=== PATIENT | male | born 1990 | race African-American/Black ===

== ENCOUNTER 2016-12-30 01:04 | Emergency (ER) | payer SELFPAY ==
[~2016-12-30] VITALS: Ht 175.3 cm; Wt 110.0 kg
[~2016-12-30 01:04] MED LIST: Z.0.NO CURRENT MEDS
[2016-12-30 01:05] VITALS: BP 137/87; PULSE 68; RESP 18; TEMP 97.7; O2SAT 99
[2016-12-30] MEDS ORDERED: ACETAMINOPHEN/CODEINE 300 MG/30 MG TAB PO ONE (02:45)
[2016-12-30] MEDS ORDERED: DICL75TA PO (02:45)
[2016-12-30] MEDS ORDERED: KETOROLAC TROMETHAMINE 60 MG/2 ML (IM) VIAL IM ONE (02:45)
[2016-12-30] MEDS ORDERED: MAGICADU2 SWISH-SPIT (02:45)
--- NOTE | 2016-12-30 02:48 | PD ---
HPI Chief Complaint: Oral / Dental Pain or Problem Time Seen by Provider: 02:38 Travel History International Travel<30 days: No Contact w/Intl Traveler<30days: No Traveled to known affect area: No History of Present Illness HPI 26-year-old male presents for evaluation of dental pain. Symptoms have been intermittent for "a long time" with occasional flareups. He has had increased pain over the past 2 days. The pain is a throbbing pain localized to the right mandibular third molar and radiating to the right ear, face. Pain worse when chewing. Denies dental trauma. No other complaints. PFSH Past Medical History Medical History: Denies Significant Hx Diminished Hearing: No Past Surgical History Surgical History: No Previous Surgery Social History Alcohol Use: No Tobacco Use: No Substance Use: No Allergies-Medications (Allergen,Severity, Reaction): Coded Allergies: No Known Allergies (Verified , 12/30/16) Reported Meds & Prescriptions Reported Meds & Active Scripts Active Magic Mouthwash Adult Liq (Multi-Ingredient Mouthwash/Gargle) 120 Ml Susp 10 Ml SWISH-SPIT ACHS Each 5mL contains: Nystatin 200,000units, Diphenhydramine 4.25mg, Viscous Lidocaine 10mg, Marie syrup 0.[address] (Diclofenac Sodium) 75 Mg Tabdr 75 Mg PO BID 10 Days Review of Systems General / Constitutional: No: Fever, Chills HENT: Positive: Dental Difficulties Physical Exam Narrative GENERAL: Well-nourished male in no acute distress SKIN: Warm and dry. HEAD: Atraumatic. Normocephalic. EYES: Pupils equal and round. No scleral icterus. No injection or drainage. ENT: No nasal bleeding or discharge. Mucous membranes pink and moist. Right mandibular third molar is impacted. There is no gingival edema, no erythema, no significant dental decay. NECK: Trachea midline. No JVD. No lymphadenopathy, no submandibular edema Data Data Last Documented VS Vital Signs Date Time Temp Pulse Resp B/P Pulse Ox O2 Delivery O2 Flow Rate FiO2 12/30/16 01:05 97.7 68 18 137/87 99 Room Air Orders Acetamin-Codeine 300-30 Mg (Tylenol-Code (12/30/16 02:45) Ketorolac Inj (Toradol Inj) (12/30/16 02:45) MDM Medical Decision Making Medical Screen Exam Complete: Yes Emergency Medical Condition: Yes Medical Record Reviewed: Yes Differential Diagnosis Impacted molar, dental caries, pulpitis, pericoronitis, periodontal abscess Narrative Course The patient has an impacted third molar causing pain. He'll be given Toradol and Tylenol with codeine here, discharged with Magic mouthwash and diclofenac, advised follow up with a dentist for definitive therapy. Diagnosis Primary Impression: Impacted third molar tooth Additional Instructions: Follow-up with a dentist for definitive therapy. Medication as prescribed. Med/Other Pt SpecificInfo: Prescription(s) given Scripts Pxuledvc-Moikahgcnfruahs-Zfqjnimgy Liq (Magic Mouthwash Adult Liq)120 Ml Susp10 Ml SWISH-SPIT ACHS #120 ML Ref 1 Each 5mL contains: Nystatin 200,000units, Diphenhydramine 4.25mg, Viscous Lidocaine 10mg, Marie syrup 0.8 mL Prov:Angel Sotelo MD 12/30/[address] 75 Mg Tabdr75 Mg PO BID 10 Days Ref 0 Prov:Angel Sotelo MD 12/30/16 Disposition: 01 DISCHARGE HOME Condition: Stable Timothy Tadeo Dec 30, 2016 02:48
== END 2016-12-30 03:15 | disposition home or self-care (01) ==
LOC: NEPK 01:04
DX: K01.1 Impacted teeth (principal)
CPT/HCPCS: 96372; 99282; J1885

== ENCOUNTER 2018-01-24 23:35 | Emergency (ER) | payer SELFPAY ==
[~2018-01-24] VITALS: Ht 175.3 cm; Wt 113.5 kg
[~2018-01-24 23:35] MED LIST changes: +DICL75TA PO; +MAGICADU2 SWISH-SPIT; -Z.0.NO CURRENT MEDS
[2018-01-24 23:44] VITALS: BP 154/76; PULSE 71; RESP 16; TEMP 98.5; O2SAT 100
[2018-01-25] MEDS ORDERED: PENI500T PO (00:08)
[2018-01-25] MEDS ORDERED: NAPR500T2 PO (00:08)
--- NOTE | 2018-01-25 00:08 | PD ---
HPI Chief Complaint: Oral / Dental Pain or Problem Time Seen by Provider: 00:03 Travel History International Travel<30 days: No Contact w/Intl Traveler<30days: No Traveled to known affect area: No History of Present Illness HPI 27-year-old male here for evaluation of right upper dental pain and facial swelling. Patient has had these symptoms intermittently for the last year, however his symptoms returned about 3 days ago and have been progressively worsening. Pain is severe and it has been preventing him from sleeping. He denies fevers or chills. No difficulty swallowing. PFSH Past Medical History Medical History: Denies Significant Hx Diminished Hearing: No Immunizations Current: Yes Tetanus Vaccination: < 5 Years Influenza Vaccination: No Past Surgical History Surgical History: No Previous Surgery Social History Alcohol Use: No Tobacco Use: No Substance Use: No Allergies-Medications (Allergen,Severity, Reaction): Coded Allergies: No Known Allergies (Verified Adverse Reaction, Unknown, 01/25/18) Reported Meds & Prescriptions Reported Meds & Active Scripts Active Naproxen 500 Mg Tab 500 Mg PO BID 10 Days Penicillin V Potassium 500 Mg Tab 500 Mg PO Q6H 10 Days Magic Mouthwash Adult Liq (Multi-Ingredient Mouthwash/Gargle) 120 Ml Susp 10 Ml SWISH-SPIT ACHS Each 5mL contains: Nystatin 200,000units, Diphenhydramine 4.25mg, Viscous Lidocaine 10mg, Marie syrup 0.[address] (Diclofenac Sodium) 75 Mg Tabdr 75 Mg PO BID 10 Days Review of Systems Except as stated in HPI: all other systems reviewed are Neg Physical Exam Narrative GENERAL: Well-developed, well-nourished, awake, alert, no apparent distress. SKIN: Focused skin assessment warm/dry. HEAD: Atraumatic. Normocephalic. EYES: Pupils equal and round. No scleral icterus. No injection or drainage. ENT: No nasal bleeding or discharge. Mucous membranes pink and moist. Poor dentition with tenderness along the right upper molars with tooth #2 missing. Moderate right cheek swelling. No fluctuance. No sublingual swelling. No trismus. No drooling or stridor. NECK: Trachea midline. No JVD. No submandibular or neck swelling or induration. CARDIOVASCULAR: Regular rate and rhythm. RESPIRATORY: No accessory muscle use. Clear to auscultation. Breath sounds equal bilaterally. MUSCULOSKELETAL: No obvious deformities. No clubbing. No cyanosis. No edema. NEUROLOGICAL: Awake and alert. No obvious cranial nerve deficits. Motor grossly within normal limits. Normal speech. PSYCHIATRIC: Appropriate mood and affect; insight and judgment normal. Data Data Last Documented VS Vital Signs Date Time Temp Pulse Resp B/P (MAP) Pulse Ox O2 Delivery O2 Flow Rate FiO2 01/24/18 23:44 98.5 71 16 154/76 (102) 100 Orders Orders Naproxen (Naprosyn) (01/25/18 00:15) Penicillin V Potassium (Veetids) (01/25/18 00:15) Lidocai-Epi 1%-1:100,000 Inj (Xylocaine- (01/25/18 00:15) Acetamin-Hydrocod 325-5 Mg (Ilion 5-325 (01/25/18 00:30) Morphine Inj (Morphine Inj) (01/25/18 01:00) MDM Medical Decision Making Medical Screen Exam Complete: Yes Emergency Medical Condition: Yes Differential Diagnosis Dental cavities, dental infection Narrative Course This is a 27-year-old male who presents for evaluation of right upper posterior dental pain and facial swelling. The patient has poor dentition with several cavities. He has been unable to make an appointment with a dentist. There is no drooling or stridor on exam. No trismus. Patient was provided a right greater palatine nerve block with significant improvement in pain. Plan is to start him on Pen-Vee K and have him follow-up as an outpatient with a dentist. He will be provided outpatient dental clinic information. He is stable for discharge home with outpatient follow-up and was advised on when to return to the emergency department. He verbalizes understanding and agreement with plan. Prior to being discharged the patient complained of worsening pain to his right upper posterior molars. I decided to inject directly into the nerve root of the right upper posterior molar with decay. This caused worsening pain for the patient. He was given a Lortab. 12:45 AM: On reassessment the patient still complains of severe pain. He will be given a dose of IM morphine and reassessed. On reassessment the patient feels slightly improved. He is resting comfortably. There are no physical exam findings for deep space neck infection. Patient has obvious dental decay to his right upper/posterior molars and likely has a periapical abscess requiring extraction. There is no trismus on exam. Again no drooling or stridor. I stressed the importance of dental follow-up this week. Patient verbalizes appreciation of care. Procedures Procedure Narrative Right greater palatine nerve block: 1 cc of 1% lidocaine with epinephrine was injected in the area of the right greater palatine nerve. The patient experienced almost immediate/significant improvement in pain. Tolerated well. No complications. Diagnosis Primary Impression: Pain, dental Referrals: Dentist 3 days Additional Instructions: Follow-up with a dentist this week. Return to the emergency department for worsening symptoms or any other concerns. Scripts Naproxen (Naproxen) 500 Mg Tab 500 MG PO BID for 10 Days, #20 TAB 0 Refills Prov: Rayo Romero MD 01/25/18 Penicillin V Potassium (Penicillin V Potassium) 500 Mg Tab 500 MG PO Q6H for Infection for 10 Days, #40 TAB 0 Refills Prov: Rayo Romero MD 01/25/18 Disposition: 01 DISCHARGE HOME Condition: Stable Rayo Romero MD January 25, 2018 00:08
[2018-01-25] MEDS ORDERED: NAPROXEN 500 MG TAB PO ONE (00:15)
[2018-01-25] MEDS ORDERED: PENICILLIN V POTASSIUM 500 MG TAB PO ONE (00:15)
[2018-01-25] MEDS ORDERED: LIDOCAINE 1%/EPINEPHrine 1:100,000 SOLN 20 ML VIAL INFIL ONE (00:15)
[2018-01-25] MEDS ORDERED: ACETAMINOPHEN/HYDROcodone 325 MG/5 MG TAB PO ONE (00:30)
[2018-01-25] MEDS ORDERED: MORPHINE SULFATE 8 MG/ML INJ IM ONE (01:00)
[2018-01-25 01:21] VITALS: RESP 20
== END 2018-01-25 02:02 | disposition home or self-care (01) ==
LOC: NEPD 23:35
DX: K08.89 Other specified disorders of teeth and supporting structures (principal)
CPT/HCPCS: 64400; 96372; 99283; J2270